=== PATIENT | female | born 2000 | race American Indian/Alaskan Native ===

== ENCOUNTER 2022-02-19 02:07 | Emergency (ER) | payer SELFPAY ==
[2022-02-19 02:52] VITALS: BP 115/86
[2022-02-19 03:16] LABS: Hematocrit 34.3 % (30.3-42.9); Hemoglobin 11.2 gm/dl (10.1-14.3); Mean Corpuscular HGB Conc 33 % (30-34); Platelet Count 235 K/mm3 (140-440); Red Blood Count 5.75 M/mm3 (3.65-5.03)
--- NOTE | 2022-02-19 03:16 | XRay Report ---
XR chest routine 2V INDICATION / CLINICAL INFORMATION: Chest Pain. COMPARISON: None available. FINDINGS: SUPPORT DEVICES: None. HEART /PULMONARY VASCULATURE: No significant abnormality. LUNGS / PLEURA: No significant pulmonary or pleural abnormality. No pneumothorax. ADDITIONAL FINDINGS: No significant additional findings. IMPRESSION: 1. No acute findings. Signer Name: Leif Cevallos MD Signed: 02/19/2022 3:11 AM Workstation Name: [id number]
[2022-02-19 03:17] LABS: Mean Corpuscular Volume 60 fl (79-97)
[2022-02-19 03:53] LABS: Anisocytosis 1+; Basophils % (Manual) 0 % (0.0-1.8); Eosinophils % (Manual) 0 % (0.0-4.3); Hypochromasia 2+; Platelet Estimate Consistent w Auto; Total Cells Counted 100
[2022-02-19 04:14] LABS: BUN/Creatinine Ratio 6; Blood Urea Nitrogen 6 mg/dL (7-17); Calcium 9.1 mg/dL (8.4-10.2); Hemolysis Index 0
[2022-02-19] MEDS ORDERED: dexAMETHasone 4 MG/ML VIAL PO ONE (10:15)
[2022-02-19] MEDS ORDERED: KETOROLAC 10 MG TAB PO ONE (10:17)
[2022-02-19] MEDS ORDERED: ACETAMINOPHEN W/CODEINE 300-30 MG TAB PO ONE (10:17)
[2022-02-19] MEDS ORDERED: ACETAMINOPHEN 325 MG TAB PO ONE (10:17)
--- NOTE | 2022-02-19 10:54 | Emergency Department Report ---
ED General Adult HPI - General Chief complaint: Chest Pain Stated complaint: FLU CHEST PAINS AND SOB Time Seen by Provider: 02/19/22 10:13 Source: patient Mode of arrival: Ambulatory Limitations: No Limitations - History of Present Illness Initial comments: 22-year-old black female with no past medical history presents to the emergency department for evaluation of 2-day history of worsening body aches, chest pain, fever, and generalized malaise. She states that she just returned from [place] for a music festival and has been having symptoms since then. She denies any sick contacts. MD Complaint: Body aches, fever, chest pain, generalized malaise. -: Gradual, days(s) (2) Location: head, chest, back Radiation: non-radiation Severity scale (0 -10): 8 Quality: aching Consistency: constant Associated Symptoms: chest pain, cough, fever/chills, headaches, loss of appetite, malaise, shortness of breath, weakness. denies: confusion, diaphoresi s, nausea/vomiting, rash, seizure, syncope Treatments Prior to Arrival: none - Related Data Allergies Allergy/AdvReac Type Severity Reaction Status Date / Time No Known Allergies Allergy Unverified 02/19/22 02:53 ED Review of Systems ROS: Stated complaint: FLU CHEST PAINS AND SOB Other details as noted in HPI Comment: All other systems reviewed and negative Constitutional: fever, malaise, weakness. denies: chills Eyes: denies: eye pain, vision change ENT: congestion. denies: throat pain Respiratory: cough, shortness of breath. denies: orthopnea, SOB with exertion, SOB at rest, stridor, wheezing Cardiovascular: chest pain. denies: palpitations, dyspnea on exertion, orthopnea, edema, syncope, paroxysmal nocturnal dyspnea Gastrointestinal: denies: abdominal pain, nausea, vomiting, diarrhea, hematem esis, melena, hematochezia Genitourinary: denies: urgency, dysuria Musculoskeletal: back pain Skin: denies: rash, lesions Neurological: headache, weakness ED Physical Exam - General Limitations: No Limitations General appearance: alert, in no apparent distress - Head Head exam: Present: atraumatic, normocephalic - Eye Eye exam: Present: normal appearance. Absent: scleral icterus, conjunctival injection, periorbital swelling, periorbital tenderness - ENT ENT exam: Absent: normal exam (Bilateral nasal mucosal edema), normal orophraynx (Erythema to posterior oropharynx) - Neck Neck exam: Present: normal inspection, full ROM. Absent: tenderness, m eningismus, lymphadenopathy, thyromegaly - Respiratory Respiratory exam: Present: normal lung sounds bilaterally. Absent: respiratory distress, wheezes, rales, rhonchi, stridor, chest wall tenderness - Cardiovascular Cardiovascular Exam: Present: tachycardia, normal heart sounds - GI/Abdominal GI/Abdominal exam: Present: soft, normal bowel sounds. Absent: distended, tenderness, guarding, rebound, rigid - Extremities Exam Extremities exam: Present: normal inspection, full ROM, normal capillary refill. Absent: tenderness, pedal edema, joint swelling, calf tenderness - Back Exam Back exam: Present: normal inspection. Absent: CVA tenderness (R), CVA tenderness (L), vertebral tenderness - Neurological Exam Neurological exam: Present: alert, oriented X3 - Psychiatric Psychiatric exam: Present: normal affect, normal mood - Skin Skin exam: Present: warm, dry, intact, normal color ED Course Vital Signs 02/19/22 02:44 Temperature 102.6 F H Pulse Rate 100 H Respiratory 16 Rate Blood Pressure 115/86 O2 Sat by Pulse 100 Oximetry ED Medical Decision Making - Lab Data Result diagrams: 02/19/22 03:07 02/19/22 03:07 - EKG Data Interpretation: normal EKG - Radiology Data Radiology results: report reviewed, image reviewed Chest x-ray: FINDINGS: SUPPORT DEVICES: None. HEART /PULMONARY VASCULATURE: No significant abnormality. LUNGS / PLEURA: No significant pulmonary or pleural abnormality. No pneumothorax. ADDITIONAL FINDINGS: No significant additional findings. IMPRESSION: 1. No acute findings. - Medical Decision Making 22-year-old black female with no past medical history presents to the emergency department for evaluation of 2-day history of worsening body aches, chest pain, fever, and generalized malaise. She states that she just returned from [place] for a music festival and has been having symptoms since then. She denies any sick contacts. Physical exam unremarkable. Labs, troponin, and chest x-ray without any acute abnormalities noted. Patient given one-time dose of Decadron, Toradol, and Tylenol 3 while in the emergency department and will be discharged home and advised to take Tylenol and ibuprofen as needed for pain and fever, increase intake of noncaffeinated fluids, and follow-up with primary care provider if no improvement or worsening symptoms. She is advised to return to the emergency department for any concerning symptoms. She verbalizes understanding of and agreement with plan of care. Critical care attestation.: If time is entered above; I have spent that time in minutes in the direct care of this critically ill patient, excluding procedure time. ED Disposition Clinical Impression: Viral syndrome Disposition: HOME / SELF CARE / HOMELESS Is pt being admited?: No Does the pt Need Aspirin: No Condition: Stable Instructions: Viral Illness, Adult Additional Instructions: Use Tylenol and ibuprofen as needed for pain and fever. Increase intake of noncaffeinated fluids. Follow-up with your primary care provider if no improvement or worsening symptoms. Return to the emergency department as needed. Referrals: VIVIEN GROVER MD [Primary Care Provider] - 3-5 Days Forms: Work/School Release Form(ED) Time of Disposition: 10:54
--- NOTE | 2022-02-20 17:39 | Electrocardiograph Report ---
[facility] Test Date: 2022-02-19 Test Time: 02:47:57 Pat Name: TATO LUGO Department: Room: Gender: F Disability Advocate: SOUMYA : 2000 Requested By: THA CULLEN Order Number: [id number] Reading MD: Savana Gross Measurements Intervals [place] Rate: 90 P: 65 WI: 154 QRS: 15 QRSD: 79 T: 33 QT: 343 QTc: 420 Interpretive Statements Sinus rhythm Probable left atrial enlargement Nonspecific T abnormalities, anterior leads No previous ECG available for comparison Electronically Signed On 02-20-2022 17:39:09 EDT by Savana Gross
== END 2022-02-19 11:20 | disposition home or self-care (01) ==
LOC: ED 02:07
DX: B34.9 Viral infection, unspecified (principal)
CPT/HCPCS: 36415; 71046; 80048; 84484; 85007; 85025; 93005; 99284; J1100